=== PATIENT | female | born 1950 | race Caucasian/White ===

== ENCOUNTER 2017-02-13 15:07 | Emergency (ER) | payer OTHER ==
[2017-02-13 15:14] VITALS: TEMP 98.2
--- NOTE | 2017-02-13 15:22 | CPEKG ---
Heart Rate: 71 RR Interval: 845 P-R Interval: 180 QRSD Interval: 90 QT Interval: 412 QTC Interval: 448 P [place]: 68 QRS [place]: 39 T Wave [place]: 7 EKG Severity - BORDERLINE ECG - EKG Impression: SINUS RHYTHM Electronically Signed By: Romeo Wood 13-Feb-2017 16:53:32
[2017-02-13 16:26] LABS: % IMMATURE GRANULYOCYTES 0.3 % (0.0-1.1); ABSOLUTE IMMATURE GRANULOCYTES 0.02 10^3/uL (0.00-0.10); ADD DIFF? NO; ADD MORPH? NO; ADD SCAN? NO; ANION GAP 12 mEq/L (8-16); ATYPICAL LYMPHOCYTE FLAG 30 (0-99); CALCIUM 9.7 mg/dL (8.5-10.4); CARBON DIOXIDE 21 mEq/l (22-31); CHLORIDE 107 mEq/L (97-110); CREATININE 0.7 mg/dL (0.6-1.0); FRAGMENT RBC FLAG 0 (0-99); GLOMERULAR FILTRATION RATE > 60; GLUCOSE 106 mg/dL (70-100); HEMATOCRIT 41.1 % (38.0-47.0); HEMOGLOBIN 14.2 g/dL (12.6-16.3); LEFT SHIFT FLG 0 (0-99); LIPEMIA HEMOLYSIS FLAG 90 (0-99); MEAN CELL HEMOGLOBIN 32.3 pg (27.9-34.1); MEAN CELL HEMOGLOBIN CONCENTR. 34.5 g/dL (32.4-36.7); MEAN CELL VOLUME 93.6 fL (81.5-99.8); PLATELET CLUMPS FLAG 10 (0-99); PLATELET COUNT 373 10^3/uL (150-400); POTASSIUM 4.4 mEq/L (3.5-5.2); RED BLOOD CELL COUNT 4.39 10^6/uL (4.18-5.33); RED CELL DISTRIBUTION WIDTH 12.3 % (11.5-15.2); SODIUM 140 mEq/L (134-144)
[2017-02-13 16:37] LABS: TROPONIN I < 0.012 ng/mL (0-0.034)
--- NOTE | 2017-02-13 16:46 | EDPHY ---
H & P Stated Complaint: chest pain Time Seen by Provider: 02/13/17 16:27 HPI/ROS: CHIEF COMPLAINT: Chest pain HISTORY OF PRESENT ILLNESS: The patient presents to the ED for evaluation of chest pain. She reports she awoke today with an unusual discomfort adjacent to her sternum on the left side. She reports a reproducible palpable left-sided chest pain which has been present with her all day. It has slowly improved throughout the day. The patient is particularly concerned because over the past 2 months she has had 2 episodes of presyncope, fatigue and nausea. Both of these have occurred with minimal exertion. The patient denies significant risk factors for coronary artery disease. The patient did not have any symptoms of presyncope nausea or fatigue with her chest pain today. The patient reportedly saw her primary care provider who did blood work a week ago which was unremarkable by her report. She was scheduled to get an EKG performed today but was referred to the ED secondary to her chest pain. The patient denies any asymmetric calf pain or swelling. She does have mildly pleuritic chest pain which is also reproducible. REVIEW OF SYSTEMS: A comprehensive 10 point review of systems is otherwise negative aside from elements mentioned in the history of present illness. Source: Patient Exam Limitations: No limitations - Personal History Current Tetanus/Diphtheria Vaccine: Unsure Current Tetanus Diphtheria and Acellular Pertussis (TDAP): Unsure - Medical/Surgical History Hx Asthma: Yes Hx Chronic Respiratory Disease: No Hx Diabetes: No Hx Cardiac Disease: No Hx Renal Disease: No Hx Cirrhosis: No Hx Alcoholism: No Hx HIV/AIDS: No Hx Splenectomy or Spleen Trauma: No Other PMH: asthma, hypothyroid - Social History Smoking Status: Former smoker - Physical Exam Exam: General Appearance: Alert, no distress Eyes: Pupils equal and round no pallor or injection ENT, Mouth: Mucous membranes moist Respiratory: Tenderness to palpation along the left sternal, no crepitus, no subcutaneous emphysema Cardiovascular: Regular rate rhythm, no rubs murmurs gallops Gastrointestinal: Abdomen is soft and nontender, no masses, bowel sounds normal Neurological: A&O, normal motor function, normal sensory exam, normal cranial nerves Skin: Warm and dry, no rashes Musculoskeletal: Neck is supple nontender Extremities: symmetrical, full range of motion, no clinical evidence of DVT Constitutional: Initial Vital Signs Temperature (C) 36.8 C 02/13/17 15:10 Heart Rate 82 02/13/17 15:10 Respiratory Rate 16 02/13/17 15:10 Blood Pressure 114/78 02/13/17 15:10 O2 Sat (%) 96 02/13/17 15:10 O2 Delivery Mode Room Air Allergies/Adverse Reactions: Penicillins Allergy (Verified 02/13/17 15:14) Sulfa (Sulfonamide Antibiotics) Allergy (Verified 02/13/17 15:14) Medical Decision Making - Diagnostics EKG Interpretation: EKG: Complete interpretation has been separately recorded in the [facility] archive. Summary impression: Sinus rhythm, no evidence of ischemic changes. Imaging Results: Imaging Impressions Chest X-Ray 02/13/17 16:09 Impression: 1. Hyperexpanded lungs with peribronchial thickening, suggesting airways disease /COPD 2. Additional findings as above. ED Course/Re-evaluation: The patient presents to the ED with a 1 day history of left-sided chest pain. My suspicion is that this is costochondritis. Given the mildly pleuritic nature of the pain, a D-dimer was ordered and found to be negative. I feel this adequately excludes pulmonary embolism in this patient. Additionally the patient has had some episodes of presyncope and nausea over the past several months. Her EKG demonstrates no evidence of ischemia. Her troponin is normal. Her chest x-ray demonstrates no evidence of acute disease. At this point time I do feel the patient can be discharged home with a diagnosis of costochondritis. Given the history of exertional nausea she has had I do feel it would be reasonable to have her follow up with our on-call slate trimmer. She has been given the number of our slate trimmer for further testing. The patient has been instructed to return to the ED for markedly worsening chest pain, difficulty breathing, exertional symptoms or other concerns. Differential Diagnosis: Differential diagnosis considered includes pulmonary embolism, costochondritis, pneumothorax, pericarditis, arrhythmia, myocardial infarction, acute coronary syndrome - Data Points Laboratory Results: Laboratory Results 02/13/17 15:30 02/13/17 15:30 02/13/17 02/13/17 02/13/17 16:57 15:30 15:30 WBC 6.98 10^3/uL 10^3/uL (3.80-9.50) RBC 4.39 10^6/uL 10^6/uL (4.18-5.33) Hgb 14.2 g/dL g/dL (12.6-16.3) Hct 41.1 % % (38.0-47.0) MCV 93.6 fL fL (81.5-99.8) MCH 32.3 pg pg (27.9-34.1) MCHC 34.5 g/dL g/dL (32.4-36.7) RDW 12.3 % % (11.5-15.2) Plt Count 373 10^3/uL 10^3/uL (150-400) MPV 9.0 fL fL (8.7-11.7) Neut % (Auto) 40.1 % % (39.3-74.2) Lymph % (Auto) 50.6 % H % (15.0-45.0) [place] % (Auto) 6.3 % % (4.5-13.0) Eos % (Auto) 1.7 % % (0.6-7.6) Baso % (Auto) 1.0 % % (0.3-1.7) Nucleat RBC Rel Count 0.0 % % (0.0-0.2) Absolute Neuts (auto) 2.80 10^3/uL 10^3/uL (1.70-6.50) Absolute Lymphs (auto) 3.53 10^3/uL H 10^3/uL (1.00-3.00) Absolute Monos (auto) 0.44 10^3/uL 10^3/uL (0.30-0.80) Absolute Eos (auto) 0.12 10^3/uL 10^3/uL (0.03-0.40) Absolute Basos (auto) 0.07 10^3/uL 10^3/uL (0.02-0.10) Absolute Nucleated RBC 0.00 10^3/uL 10^3/uL (0-0.01) Immature Gran % 0.3 % % (0.0-1.1) Immature Gran # 0.02 10^3/uL 10^3/uL (0.00-0.10) D-Dimer < 0.27 ug/mLFEU ug/mLFEU (0.00-0.50) Sodium 140 mEq/L mEq/L (134-144) Potassium 4.4 mEq/L mEq/L (3.5-5.2) Chloride 107 mEq/L mEq/L (97-110) Carbon Dioxide 21 mEq/l L mEq/l (22-31) Anion Gap 12 mEq/L mEq/L (8-16) BUN 13 mg/dL mg/dL (7-23) Creatinine 0.7 mg/dL mg/dL (0.6-1.0) Estimated GFR > 60 Glucose 106 mg/dL H mg/dL (70-100) Calcium 9.7 mg/dL mg/dL (8.5-10.4) Troponin I < 0.012 ng/mL ng/mL (0-0.034) Departure - Departure Disposition: Home, Routine, Self-Care Clinical Impression: Chest pain, Chest wall pain Condition: Good Instructions: Chest Pain (ED) Additional Instructions: 1. Based upon the testing done in the Emergency Department today we see no evidence of a heart attack. 2. We are unable to fully exclude coronary artery disease based upon the testing available in the Emergency Department. 3. For this reason, we would like you to be seen by cardiology for consideration of additional testing within the next 3 days. 4. Please contact the slate trimmer you have been referred to schedule this appointment as soon as possible. Their offices are typically open from 8:30am- 5pm M-F. 5. Please return to the Emergency Department immediately for any recurrent chest pain, difficulty breathing or other concerns. 6. I recommend taking ibuprofen 600 mg 3 times a day for your rib pain. Referrals: Henry Gallardo MD [Primary Care Provider] - As per Instructions Tyrone Patterson MD [Medical Doctor] - As per Instructions
[2017-02-13 18:45] VITALS: BP 115/73; PULSE 68; RESP 18; O2SAT 98
== END 2017-02-13 18:43 | disposition home or self-care (01) ==
DX: R07.89 Other chest pain (principal); J45.909 Unspecified asthma, uncomplicated; Z87.891 Personal history of nicotine dependence